=== PATIENT | male | born 1985 | race Caucasian/White ===

== ENCOUNTER 2020-04-19 11:30 | Emergency (ER) | payer MEDICAID, SELFPAY ==
[2020-04-19 11:58] VITALS: BP 123/76; PULSE 113; RESP 16; TEMP 36.2; O2SAT 99
--- NOTE | 2020-04-19 12:05 | ED.EYEPROB ---
HPI - Eye Problem General Chief complaint: Eye Problems Stated complaint: possible pink eye Time Seen by Provider: 04/19/20 12:06 Source: patient Mode of arrival: ambulatory Limitations: no limitations History of Present Illness HPI Narrative: Basilio Burnette is a 34 yo male with a PMH of TBI, seizures, stuttering, who comes to express care with c/o eye irritation and redness, for past 3 days Related Data Home Medications Medication Instructions Recorded Confirmed divalproex [Depakote] 1,000 mg PO Q12H 04/19/20 04/19/20 Allergies Allergy/AdvReac Type Severity Reaction Status Date / Time fentanyl Allergy Hallucinati Verified 04/19/20 12:04 ng Penicillins Allergy Rash Verified 04/19/20 12:03 lithium AdvReac Other Verified 04/19/20 12:05 Review of Systems Review of Systems: Narrative: CONSTITUTIONAL: Denies fever, chills, sweats. EYES: Denies visual changes, redness, discharge. ENT: Denies rhinorrhea, congestion, sore throat, otalgia. CARDIOVASCULAR: Denies chest pain, palpitations, edema. RESPIRATORY: Denies dyspnea, wheezing, cough GASTROINTESTINAL: Denies abdominal pain, nausea, vomiting, diarrhea. GENITOURINARY: Denies dysuria, hematuria, abnormal discharge SKIN: Denies rash or itching. NEUROLOGIC: Denies numbness, or focal weakness. PSYCHIATRIC: Denies anxiety or depression. [facility] Family History Family History Other No active medical problems Social History Social History (Updated 04/19/20 @ 12:16 by Marsha Velázquez CNP) Smoking packs per day: 0.5 Smoking cigarettes per day: 10.0 Smoking status: Current every day smoker Alcohol intake: former Substance use: former Living arrangements: alone Occupation/Education: other Gender identity (if verbalized by the patient): Male Comments At time of signature, I agree with nursing past medical, surgical, social and family history. There is no relevant family history pertinent to the presenting complaint. Exam Narrative: Exam Narrative: GENERAL: This is a well-nourished, well-developed patient, in mild distress. HEAD: normocephalic, atraumatic. EYES: Sclera clear/mildly injected. some photophobia. Vision is grossly intact. EARS: External ears normal, Hearing grossly intact. NOSE: External nose normal without nasal discharge, nares without redness, no rhinorrhea. THROAT: Mucous membranes moist, NECK: Neck supple, non-tender CARDIOVASCULAR: Regular rate and rhythm without murmurs, gallops, or rubs. RESPIRATORY: Clear to auscultation. Breath sounds equal bilaterally. No wheezes, rales, or rhonchi. GASTROINTESTINAL: Abdomen soft, SKIN: warm, intact with no suspicious lesions or rash, good texture and turgor. NEURO: awake, alert, and oriented to person, place and time. There were no obvious focal neurologic abnormalities. Steady gait EXTREMITIES: Normal range of motion. BACK: Nontender without deformity Course Course Emergency Course: Give 30-day renewal for Depakote Started on polymyxin eyedrops, bilateral x5 days suggested use of eyedrops for allergy if continue to have issues Vital Signs Vital signs: Vital Signs Temperature 97.2 F L 04/19/20 11:58 Pulse Rate 113 H 04/19/20 11:58 Respiratory Rate 16 04/19/20 11:58 Blood Pressure 123/76 04/19/20 11:58 Pulse Oximetry 99 04/19/20 11:58 Temperature 97.2 F L 04/19/20 11:58 Pulse Rate 113 H 04/19/20 11:58 Respiratory Rate 16 04/19/20 11:58 Blood Pressure 123/76 04/19/20 11:58 Pulse Oximetry 99 04/19/20 11:58 MDM - Eye Problem Differential Diagnosis Differential diagnosis: Likely corneal abrasion, conjunctivitis and other Discharge Plan Discharge Clinical Impression: Bacterial conjunctivitis, Seizure disorder Patient Disposition: Home, Self-Care Condition: Stable Instructions: Antibiotic Form, Conjunctivitis (ED) Prescriptions: New divalproex [Depakote ER] 500 mg
== END 2020-04-19 12:40 | disposition home or self-care (01) ==
PROVIDERS: Emergency Provider Nurse Practitioner
DX: H10.30 Unspecified acute conjunctivitis, unspecified eye (principal); G40.909 Epilepsy, unspecified, not intractable, without status epilepticus; F17.210 Nicotine dependence, cigarettes, uncomplicated; Z87.820 Personal history of traumatic brain injury
CPT/HCPCS: 99203; G0463